=== PATIENT | female | born 1940 | race Caucasian/White ===

== ENCOUNTER 2016-09-10 20:25 | Emergency (ER) | payer OTHER ==
[~2016-09-10] VITALS: Ht 152.4 cm; Wt 93.0 kg
[~2016-09-10 20:25] MED LIST: CATAPRES-T0.1 MG/24 PO; GLYBURIDE5 M1 PO; KLOR-CON 1010 ME1 PO; LASIX40 MG PO; LOTENSIN20 MG PO; METFORMIN HYD1000 M1 PO; METFORMIN HYDRO1 POW; NIFEDIPINE ER30 M1 PO
[2016-09-10 20:30] VITALS: BP 152/90
--- NOTE | 2016-09-10 21:45 | NUR ---
Note undone in EDM - 09/11/16 at 0144 by HUAN PATIENT PRESENTS TO ED WITH pain to left arm due to fall at dinner . PT STATES DENIES N/V/D; SKIN IS PINK/WARM/DRY; AAOX4 WITH EVEN AND STEADY GAIT; LUNGS CLEAR BL; HR EVEN AND REGULAR; PT DENIES ANY FEVER, CP, SOB, OR COUGH AT THIS TIME; PATIENT STATES PAIN OF 6/10 AT THIS TIME; VSS; PATIENT POSITIONED FOR COMFORT; HOB ELEVATED; BEDRAILS UP X2; BED DOWN. ER MD MADE AWARE OF PT STATUS.
--- NOTE | 2016-09-10 23:31 | NUR ---
TO ER BED 2
--- NOTE | 2016-09-11 00:10 | NUR ---
PATIENT PRESENTS TO ED WITH pain to left arm due to fall at dinner . PT STATES DENIES N/V/D; SKIN IS PINK/WARM/DRY; AAOX4 WITH EVEN AND STEADY GAIT; LUNGS CLEAR BL; HR EVEN AND REGULAR; PT DENIES ANY FEVER, CP, SOB, OR COUGH AT THIS TIME; PATIENT STATES PAIN OF 6/10 AT THIS TIME; VSS; PATIENT POSITIONED FOR COMFORT; HOB ELEVATED; BEDRAILS UP X2; BED DOWN. ER MD MADE AWARE OF PT STATUS.
[2016-09-11] MEDS ORDERED: KETOROLAC 60 MG/2 ML VIAL IM ONE (00:35)
--- NOTE | 2016-09-11 00:50 | NUR ---
Patient being evaluated by at bedside.
--- NOTE | 2016-09-11 01:15 | NUR ---
Patient discharged with v/s stable. Written and verbal after care instructions given and explained. Patient alert, oriented and verbalized understanding of instructions. Ambulatory with steady gait. All questions addressed prior to discharge. ID band removed. Patient advised to follow up with PMD. Rx of TRAMADOL 50 MG given. Patient educated on indication of medication including possible reaction and side effects. Opportunity to ask questions provided and answered.
[2016-09-11 01:16] VITALS: BP 140/80
== END 2016-09-11 01:15 | disposition home or self-care (01) ==
LOC: MED 20:25
PROC: 3E033GC Introduction of Other Therapeutic Substance into Peripheral Vein, Percutaneous Approach (ICD-10-PCS; principal; 2016-09-10)
DX: S50.02XA Contusion of left elbow, initial encounter (principal); E11.9 Type 2 diabetes mellitus without complications; I10 Essential (primary) hypertension; W18.39XA Other fall on same level, initial encounter; Y92.89 Other specified places as the place of occurrence of the external cause
CPT/HCPCS: 73030; 73080; 96372; 99284; J1885

== ENCOUNTER 2017-02-10 11:30 | Inpatient (IN) | payer OTHER ==
[~2017-02-10] VITALS: Ht 152.4 cm; Wt 105.3 kg
[2017-02-10] VITALS (17 sets, daily range): BP systolic 174–249; BP diastolic 68–126
[~2017-02-10 11:30] MED LIST changes: -CATAPRES-T0.1 MG/24 PO; +CLON0.1T46 PO; +FURO-570 PO; +GLYB5TAB14 PO; -GLYBURIDE5 M1 PO; -KLOR-CON 1010 ME1 PO; -LASIX40 MG PO; -LOTENSIN20 MG PO; +METF-431 PO; -METFORMIN HYD1000 M1 PO; -METFORMIN HYDRO1 POW; -NIFEDIPINE ER30 M1 PO; +POTA10TA10 PO; +[UNRECOGNIZED DRUG - CODE] PO
[2017-02-10] MEDS ORDERED: FURO-572 PO (11:48)
[2017-02-10] MEDS ORDERED: BENA5TAB4 PO (11:48)
[2017-02-10] MEDS ORDERED: NACL 0.9% 1,000 ML IV ONE (12:30)
[2017-02-10] MEDS ORDERED: cloNIDine 0.1 MG TAB PO ONE ×2 (12:30→23:05)
[2017-02-10 13:04] LABS: BASOPHILS # (AUTO) 0.1 K/uL (0.00-0.22); BASOPHILS % (AUTO) 1.2 % (0.0-2.0); EOSINOPHILS # (AUTO) 0.1 K/uL (0-0.4); LYMPHOCYTES # (AUTO) 2.2 K/uL (2.5-16.5); LYMPHOCYTES % (AUTO) 36.1 % (20.5-51.1); MEAN CORPUSCULAR HEMOGLOBIN 30 pg (27-31); MEAN CORPUSCULAR HGB CONC 33 g/dL (33-37); MEAN CORPUSCULAR VOLUME 90 fL (80-94); MONOCYTES # (AUTO) 0.3 K/uL (0.8-1.0); MONOCYTES % (AUTO) 4.9 % (1.7-9.3); NEUTROPHILS # (AUTO) 3.5 K/uL (1.8-7.7); NEUTROPHILS % (AUTO) 55.8 % (42.2-75.2); PLATELET COUNT (AUTO) 161 K/uL (140-450); RED BLOOD CELL COUNT(AUTO) 4.34 MIL/uL (4.20-5.40); RED CELL DISTRIBUTION WIDTH 14.3 % (11.6-13.7); WHITE BLOOD COUNT (AUTO) 6.2 K/uL (4.8-10.8)
[2017-02-10 13:09] LABS: ANION GAP 11.8 (8-16); CALCIUM 9.4 mg/dL (8.5-10.1); CARBON DIOXIDE 27.3 mmol/L (21-32); CHLORIDE 104 mmol/L (98-107); CREATININE 1.4 mg/dL (0.6-1.3); GLUCOSE 178 mg/dL (74-106); POTASSIUM 4.1 mmol/L (3.5-5.1); SODIUM SERUM 139 mmol/L (136-145); UREA NITROGEN, BLOOD 27 mg/dL (7-18)
[2017-02-10] MEDS ORDERED: hydrALAZINE 20 MG/ML VIAL IVP ONE (13:10)
[2017-02-10 13:12] LABS: PARTIAL THROMBOPLASTIN TIME 27.7 secs (22-35.6); PROTHROMBIN TIME 10.5 secs (10.8-13.4)
[2017-02-10 13:14] LABS: ALANINE AMINOTRANSFERASE 24 U/L (14-59); ALBUMIN 3.2 g/dL (3.4-5.0); ALKALINE PHOSPHATASE 115 U/L (46-116); ASPARTATE AMINOTRANSFERASE 18 U/L (15-37); TOTAL BILIRUBIN 0.4 mg/dL (0.0-1.0)
[2017-02-10 13:39] LABS: CREATINE KINASE MB 2.9 ng/mL (0-3.6)
[2017-02-10] MEDS ORDERED: NITROGLYCERIN 50 MG/D5W PREMIX 250 ML IV ONE (13:45)
[2017-02-10] MEDS ORDERED: NITROPRUSSIDE 50 MG in DEXTROSE 5% 250 ML IV PRN (14:55)
[2017-02-10] MEDS: FUROSEMIDE 40 MG TAB PO SCH ×2 (22:00→22:49)
[2017-02-10] MEDS ORDERED: ONDANSETRON 4 MG/2 ML VIAL IVP PRN (22:00)
[2017-02-10] MEDS: BENAZEPRIL 20 MG TAB PO SCH ×2 (22:00→22:48)
[2017-02-10] MEDS ORDERED: cloNIDine 0.1 MG TAB PO SCH ×2 (23:00→23:05)
[2017-02-10] MEDS: cloNIDine 0.1 MG TAB PO SCH (23:00)
[2017-02-10] MEDS ORDERED: ACETAMINOPHEN EXTRA STRENGTH 500 MG TAB PO PRN (23:15)
[2017-02-11] VITALS (18 sets, daily range): BP systolic 122–210; BP diastolic 60–113
[2017-02-11] MEDS ORDERED: LABETALOL 100 MG/20 ML VIAL IV PRN
[2017-02-11] MEDS ORDERED: hydrALAZINE 20 MG/ML VIAL IVP PRN
[2017-02-11] MEDS ORDERED: LABETALOL 100 MG/20 ML VIAL ONE (00:24)
[2017-02-11 04:48] LABS: BASOPHILS # (AUTO) 0.1 K/uL (0.00-0.22); EOSINOPHILS # (AUTO) 0.2 K/uL (0-0.4); EOSINOPHILS % (AUTO) 1.9 % (0.0-4.0); HEMATOCRIT 35.3 % (36-48); HEMOGLOBIN 11.4 g/dL (12.0-16.0); LYMPHOCYTES # (AUTO) 1.8 K/uL (2.5-16.5); LYMPHOCYTES % (AUTO) 18.1 % (20.5-51.1); MEAN CORPUSCULAR HEMOGLOBIN 29 pg (27-31); MEAN CORPUSCULAR HGB CONC 32 g/dL (33-37); MEAN CORPUSCULAR VOLUME 90 fL (80-94); MONOCYTES # (AUTO) 0.4 K/uL (0.8-1.0); NEUTROPHILS # (AUTO) 7.2 K/uL (1.8-7.7); PLATELET COUNT (AUTO) 157 K/uL (140-450); RED BLOOD CELL COUNT(AUTO) 3.94 MIL/uL (4.20-5.40); RED CELL DISTRIBUTION WIDTH 13.9 % (11.6-13.7); WHITE BLOOD COUNT (AUTO) 9.7 K/uL (4.8-10.8)
[2017-02-11 06:14] LABS: ANION GAP 9.9 (8-16); CALCIUM 8.6 mg/dL (8.5-10.1); CARBON DIOXIDE 27.2 mmol/L (21-32); CHLORIDE 104 mmol/L (98-107); CREATININE 1.4 mg/dL (0.6-1.3); GLUCOSE 196 mg/dL (74-106); POTASSIUM 4.1 mmol/L (3.5-5.1); SODIUM SERUM 137 mmol/L (136-145); UREA NITROGEN, BLOOD 26 mg/dL (7-18)
[2017-02-11] MEDS ORDERED: fentaNYL 0.05 MG/ML VIAL IVP PRN (07:30)
[2017-02-11] MEDS: cloNIDine 0.1 MG TAB PO SCH ×3 (08:12→17:22)
[2017-02-11] MEDS ORDERED: BENAZEPRIL 20 MG TAB PO SCH (09:00)
[2017-02-11] MEDS ORDERED: FUROSEMIDE 40 MG TAB PO SCH (09:00)
[2017-02-11] MEDS: BLOOD GLUCOSE MONITORING 1 DEV DEV FS SCH ×2 (12:03→17:21)
[2017-02-11] MEDS: INSULIN LISPRO SLIDING SCALE 100 UNITS/ML VIAL SUBQ PRN ×2 (12:04→17:21)
[2017-02-11] MEDS ORDERED: PROBIOTIC SCREEN 1 EA MISC MC PRN (12:10)
[2017-02-11] MEDS ORDERED: POTA20TA16 PO (12:50)
[2017-02-11] MEDS ORDERED: FURO40TA9 PO (12:50)
[2017-02-11] MEDS ORDERED: CLON0.3T9 PO (12:50)
[2017-02-11] MEDS ORDERED: BENA20TA4 PO (12:50)
[2017-02-12] MEDS ORDERED: metFORMIN 500 MG TAB PO SCH (08:00)
== END 2017-02-11 18:10 | disposition home or self-care (01) | DRG 305 ==
LOC: MED 11:30 → MIC 14:59
PROVIDERS: ADMIT Internal Medicine Pulmonary Disease; ATTEND Internal Medicine Pulmonary Disease
DX: I10 Essential (primary) hypertension (principal); E11.9 Type 2 diabetes mellitus without complications; Z88.6 Allergy status to analgesic agent; R60.9 Edema, unspecified; Z79.899 Other long term (current) drug therapy; Z90.49 Acquired absence of other specified parts of digestive tract; Z90.710 Acquired absence of both cervix and uterus
CPT/HCPCS: 36415; 71010; 80048; 80053; 82550; 82553; 82948; 84484; 85025; 85610; 85730; 87081; 93005; 96365; 96366; 96375; 99285; J0360; J1815; J2405; J3490; J7030; Q0092

== ENCOUNTER 2017-06-24 13:10 | Emergency (ER) | payer OTHER ==
[~2017-06-24] VITALS: Ht 148.6 cm; Wt 94.9 kg
[~2017-06-24 13:10] MED LIST changes: +BENA20TA4 PO; -CLON0.1T46 PO; +CLON0.3T9 PO; -FURO-570 PO; +FURO40TA9 PO; -POTA10TA10 PO; +POTA20TE15 PO; -[UNRECOGNIZED DRUG - CODE] PO
[2017-06-24 13:17] VITALS: BP 144/64
--- NOTE | 2017-06-24 13:30 | NUR ---
PATIENT TO OF 2
--- NOTE | 2017-06-24 13:45 | NUR ---
76/F c/o cough and body aches x3 days. Denies any fever or chills. Denies N/V/D. AOX4, ambulates with steady gait. VSS.
[2017-06-24] MEDS ORDERED: ALBUTEROL SULFATE/IPRATROPIU 3 ML SOL IH ONE (14:35)
--- NOTE | 2017-06-24 14:46 | NUR ---
Pt back from x-ray and placed in overflow chair.
--- NOTE | 2017-06-24 15:35 | NUR ---
Patient discharged with v/s stable. Written and verbal after care instructions given and explained. Patient alert, oriented and verbalized understanding of instructions. Ambulatory with steady gait. All questions addressed prior to discharge. ID band removed. Patient advised to follow up with PMD. Rx of Cheratussin AC 100mg-10mg/5ml and Albuterol 90mcg/actuation given. Patient educated on indication of medication including possible reaction and side effects. Opportunity to ask questions provided and answered.
[2017-06-24 15:38] VITALS: BP 145/90
== END 2017-06-24 15:35 | disposition home or self-care (01) ==
LOC: MED 13:10
DX: J20.8 Acute bronchitis due to other specified organisms (principal); E11.9 Type 2 diabetes mellitus without complications; I10 Essential (primary) hypertension; Z88.5 Allergy status to narcotic agent
CPT/HCPCS: 71010; 94640; 99283; J7620

== ENCOUNTER 2017-07-24 12:47 | Emergency (ER) | payer OTHER, MEDICAID ==
[~2017-07-24] VITALS: Ht 152.4 cm; Wt 93.0 kg
[2017-07-24 13:02] VITALS: BP 177/82
--- NOTE | 2017-07-24 13:12 | NUR ---
Patient ambulated to bed 1. RN evaluating patient at bedside.
--- NOTE | 2017-07-24 13:20 | NUR ---
76f bib self with c/o intermittent "sharp" non radiaitng 5/10 ruq abd pain x last night. Pt denies any n/v/d or urinary complaints. Pt is aox4, with steady gait. RR are even and unlabored. Pt postioned to comfort, bed down. NAD. VSS. er md aware of pt status. Will continue to monitor.
--- NOTE | 2017-07-24 13:48 | NUR ---
Patient transferred to for further care.
[2017-07-24 13:53] LABS: BASOPHILS # (AUTO) 0.1 K/uL (0.00-0.22); BASOPHILS % (AUTO) 1.5 % (0.0-2.0); EOSINOPHILS # (AUTO) 0.1 K/uL (0-0.4); EOSINOPHILS % (AUTO) 0.8 % (0.0-4.0); HEMATOCRIT 38.8 % (36-48); HEMOGLOBIN 12.8 g/dL (12.0-16.0); LYMPHOCYTES % (AUTO) 28.4 % (20.5-51.1); MEAN CORPUSCULAR HEMOGLOBIN 29 pg (27-31); MEAN CORPUSCULAR HGB CONC 33 g/dL (33-37); MEAN CORPUSCULAR VOLUME 89 fL (80-94); MONOCYTES # (AUTO) 0.4 K/uL (0.8-1.0); MONOCYTES % (AUTO) 5.1 % (1.7-9.3); NEUTROPHILS # (AUTO) 4.5 K/uL (1.8-7.7); NEUTROPHILS % (AUTO) 64.2 % (42.2-75.2); PLATELET COUNT (AUTO) 212 K/uL (140-450); RED BLOOD CELL COUNT(AUTO) 4.38 MIL/uL (4.20-5.40); RED CELL DISTRIBUTION WIDTH 13.7 % (11.6-13.7); WHITE BLOOD COUNT (AUTO) 7.1 K/uL (4.8-10.8)
[2017-07-24 14:03] LABS: ANION GAP 11.2 (8-16); CARBON DIOXIDE 28.9 mmol/L (21-32); CHLORIDE 105 mmol/L (98-107); CREATININE 1.7 mg/dL (0.6-1.3); GLUCOSE 99 mg/dL (74-106); POTASSIUM 5.1 mmol/L (3.5-5.1); SODIUM SERUM 140 mmol/L (136-145); UREA NITROGEN, BLOOD 31 mg/dL (7-18)
[2017-07-24 14:16] LABS: ALBUMIN 3.7 g/dL (3.4-5.0); LIPASE 220 U/L (73-393); TOTAL BILIRUBIN 0.4 mg/dL (0.0-1.0)
[2017-07-24 14:26] LABS: ASPARTATE AMINOTRANSFERASE 24 U/L (15-37)
--- NOTE | 2017-07-24 15:38 | NUR ---
us by bedside
[2017-07-24 16:09] LABS: APPEARANCE,URINE CLEAR (CLEAR); BILIRUBIN,URINE NEGATIVE (NEGATIVE); BLOOD, URINE TRACE-I (NEGATIVE); COLOR,URINE YELLOW (YELLOW); LEUKOCYTE ESTERASE ,URINE NEGATIVE (NEGATIVE); NITRITE, URINE NEGATIVE (NEGATIVE); PH,URINE 6.5 (5.0-9.0); UGLUCOSE NEGATIVE (NEGATIVE)
[2017-07-24 16:15] VITALS: BP 177/82
--- NOTE | 2017-07-24 16:15 | NUR ---
Patient discharged with v/s stable. Written and verbal after care instructions given and explained to parent/guardian. Parent/Guardian verbalized understanding. Ambulatorysteady gait. All questions addressed prior to discharge. Advised to follow up with PMD.
[2017-07-24 16:20] LABS: RBC,URINE 3-10 (FEW) /HPF (0-5); WBC,URINE 6-15 (FEW) /HPF (0-5)
== END 2017-07-24 16:15 | disposition home or self-care (01) ==
LOC: MED 12:47
DX: N17.9 Acute kidney failure, unspecified (principal); R10.11 Right upper quadrant pain; E11.9 Type 2 diabetes mellitus without complications; I10 Essential (primary) hypertension; Z90.89 Acquired absence of other organs; Z88.5 Allergy status to narcotic agent; Z79.899 Other long term (current) drug therapy
CPT/HCPCS: 36415; 74176; 76705; 80053; 81001; 83690; 85025; 87086; 99285; Q0092

== ENCOUNTER 2018-07-13 12:54 | Emergency (ER) | payer OTHER, MEDICAID ==
[~2018-07-13] VITALS: Ht 162.6 cm; Wt 99.6 kg
[~2018-07-13 12:54] MED LIST changes: +BENA20TA11 PO; -BENA20TA4 PO
[2018-07-13 12:57] VITALS: BP 167/86
--- NOTE | 2018-07-13 13:00 | NUR ---
77 YO F BIB SELF W/ C/O DIZZINESS X TODAY. PT RE[facility]TS [facility] AND SHE FELT LIKE SHE WAS GOING TO FALL BECAUSE OF THE DIZZINESS. PT STATES SHE THOUGHT IT WAS HYPOGLYCEMIA, DRANK ORANGE JUICE W/O RELIEF. PT REPORTS MINOR HEADACHE, DENIES INJURY/TRAUMA TO HEAD/NECK. AAOX4, GCS 15. PT BED DOWN, BEDRAIL UP X 1, ER MD AWARE AND NOTIFIED OF PT STATUS. HX DM, HTN RX ON FILE
[2018-07-13] MEDS ORDERED: NACL 0.9% 1,000 ML IV ONE ×2 (13:35→16:35)
[2018-07-13] MEDS ORDERED: MECLIZINE 25 MG TAB PO ONE (13:35)
--- NOTE | 2018-07-13 13:37 | NUR ---
Patient being evaluated by physician at bedside.
[2018-07-13 14:04] LABS: BASOPHILS % (AUTO) 0.4 % (0.0-2.0); EOSINOPHILS # (AUTO) 0.1 K/uL (0-0.4); EOSINOPHILS % (AUTO) 1.3 % (0.0-4.0); HEMATOCRIT 36.4 % (36-48); HEMOGLOBIN 11.9 g/dL (12.0-16.0); LYMPHOCYTES # (AUTO) 1.6 K/uL (2.5-16.5); LYMPHOCYTES % (AUTO) 24.5 % (20.5-51.1); MEAN CORPUSCULAR HEMOGLOBIN 30 pg (27-31); MEAN CORPUSCULAR HGB CONC 33 g/dL (33-37); MEAN CORPUSCULAR VOLUME 89.8 fL (80-94); MONOCYTES # (AUTO) 0.3 K/uL (0.8-1.0); MONOCYTES % (AUTO) 4.3 % (1.7-9.3); NEUTROPHILS # (AUTO) 4.6 K/uL (1.8-7.7); NEUTROPHILS % (AUTO) 69.5 % (42.2-75.2); PLATELET COUNT (AUTO) 153 K/uL (140-450); RED BLOOD CELL COUNT(AUTO) 4.05 MIL/uL (4.20-5.40); RED CELL DISTRIBUTION WIDTH 14.6 % (11.6-13.7); WHITE BLOOD COUNT (AUTO) 6.7 K/uL (4.8-10.8)
[2018-07-13 14:29] LABS: POTASSIUM 4.8 mmol/L (3.5-5.1); SODIUM SERUM 139 mmol/L (136-145)
[2018-07-13 14:30] LABS: ANION GAP 14.7 (8-16); CARBON DIOXIDE 26.1 mmol/L (21-32); CHLORIDE 103 mmol/L (98-107); CREATININE 1.7 mg/dL (0.6-1.3); GLUCOSE 164 mg/dL (74-106); UREA NITROGEN, BLOOD 31 mg/dL (7-18)
--- NOTE | 2018-07-13 15:27 | NUR ---
Note pete in ED - 07/13/18 at 1633 by MEDMARCUS Patient discharged with v/s stable. Written and verbal after care instructions given and explained. Patient verbalized understanding. Ambulatory with steady gait. All questions addressed prior to discharge. Advised to follow up with PMD.
[2018-07-13] MEDS ORDERED: LORazepam 2 MG/ML VIAL IVP ONE (16:35)
[2018-07-13 19:03] VITALS: BP 153/75
--- NOTE | 2018-07-13 19:03 | NUR ---
Patient discharged with v/s stable. Written and verbal after care instructions given and explained. Patient alert, oriented and verbalized understanding of instructions. Ambulatory with steady gait. All questions addressed prior to discharge. ID band removed. Patient advised to follow up with PMD. Rx of meclizine and ativan given. Patient educated on indication of medication including possible reaction and side effects. Opportunity to ask questions provided and answered.
== END 2018-07-13 19:03 | disposition home or self-care (01) ==
LOC: MED 12:54
DX: R42 Dizziness and giddiness (principal); R51 Headache; E11.9 Type 2 diabetes mellitus without complications; I10 Essential (primary) hypertension; Z79.84 Long term (current) use of oral hypoglycemic drugs; Z79.899 Other long term (current) drug therapy
CPT/HCPCS: 36415; 70450; 80048; 85025; 93005; 96361; 96374; 99284; J2060; J7030; J8597

== ENCOUNTER 2019-12-01 04:40 | Inpatient (IN) | payer OTHER, MEDICAID, SELFPAY ==
[~2019-12-01] VITALS: Ht 157.5 cm; Wt 132.9 kg
[~2019-12-01 04:40] MED LIST changes: +ALLO100T21 PO; +AMLO10TA PO; +ATI.5 PO; +BACL10TA4 PO; -BENA20TA11 PO; +CLON0.2T43 PO; -CLON0.3T9 PO; -FURO40TA9 PO; +GLIP10TA12 PO; -GLYB5TAB14 PO; +HYDR-4420 PO; -METF-431 PO; -POTA20TE15 PO; +SIMV20TA1 PO; +SITA50TA3 PO
--- NOTE | 2019-12-01 04:45 | NUR ---
PT TAKEN TO BED 10 VIA RNEY.
[2019-12-01 04:52] VITALS: BP 192/78
--- NOTE | 2019-12-01 04:52 | NUR ---
78 Y/O FEMALE BIBA FROM HOME C/O SOB X 2HRS. DENIES PAIN BUT HAS CHEST DISCOMFORT AND DESCRIBES IT PRESSURE AND IS NONRADIATING. +SOB, LABORED BREATHING, EQUAL CHEST RISE AND FALL, TACHYPENIC, +PRODUCTIVE MOIST COUGH. NO USE OF ACCESSORY MUSCLE. VSS. SPO2 99% ON 2LNC. PT ALSO HAS 5-6 WORDS SENTENCES BEFORE GETTING SOB. LUNG SOUNDS ARE CLEAR BILAT UPPER LOBES, DIMINISHED ON RIGHT LOWER LOBE, AND CRACKLES ON LEFT LOWER LOBE. HEART SOUNDS S1S2 PRESENT, CAP REFILL < 3, +3 PITTING EDEMA ON BILAT ANKLE AND PEDAL ON LOWER EXTREMETIES. A&OX4. USES WALKER AT HOME TO AMBULATE. ALLERGIES: CODEINE PMH: HTN, HIGH CHOLOSTEROL, DM.
--- NOTE | 2019-12-01 04:55 | NUR ---
IV PLACED IN L AC 20. IV SITE PATENT. LABS DRAWN AND COLLECTED.
--- NOTE | 2019-12-01 04:57 | NUR ---
RT AT BEDSIDE.
--- NOTE | 2019-12-01 05:07 | NUR ---
EKG DONE AT BEDSIDE.
[2019-12-01] MEDS ORDERED: ACETAMINOPHEN EXTRA STRENGTH 500 MG TAB PO ONE (05:20)
[2019-12-01 05:24] LABS: BASOPHILS # (AUTO) 0.1 K/uL (0.00-0.22); BASOPHILS % (AUTO) 0.5 % (0.0-2.0); EOSINOPHILS # (AUTO) 0.1 K/uL (0-0.4); EOSINOPHILS % (AUTO) 0.8 % (0.0-4.0); HEMATOCRIT 32.4 % (36-48); HEMOGLOBIN 10.4 g/dL (12.0-16.0); LYMPHOCYTES # (AUTO) 1.5 K/uL (2.5-16.5); MEAN CORPUSCULAR HEMOGLOBIN 29 pg (27-31); MEAN CORPUSCULAR HGB CONC 32 g/dL (33-37); MEAN CORPUSCULAR VOLUME 90.7 fL (80-94); MONOCYTES # (AUTO) 0.3 K/uL (0.8-1.0); MONOCYTES % (AUTO) 2.9 % (1.7-9.3); NEUTROPHILS # (AUTO) 9.3 K/uL (1.8-7.7); NEUTROPHILS % (AUTO) 82.8 % (42.2-75.2); PLATELET COUNT (AUTO) 162 K/uL (140-450); RED BLOOD CELL COUNT(AUTO) 3.57 MIL/uL (4.20-5.40); RED CELL DISTRIBUTION WIDTH 18.2 % (11.6-13.7); WHITE BLOOD COUNT (AUTO) 11.3 K/uL (4.8-10.8)
[2019-12-01 05:34] LABS: PROTHROMBIN TIME 9.7 secs (10.8-13.4)
[2019-12-01 05:35] LABS: ALBUMIN 3.6 g/dL (3.4-5.0); ANION GAP 17.2 (8-16); ASPARTATE AMINOTRANSFERASE 18 U/L (15-37); CARBON DIOXIDE 20.3 mmol/L (21-32); CHLORIDE 105 mmol/L (98-107); CREATININE 2.9 mg/dL (0.6-1.3); GLUCOSE 159 mg/dL (74-106); POTASSIUM 4.5 mmol/L (3.5-5.1); SODIUM SERUM 138 mmol/L (136-145); TOTAL BILIRUBIN 0.4 mg/dL (0.0-1.0); UREA NITROGEN, BLOOD 41 mg/dL (7-18)
--- NOTE | 2019-12-01 05:50 | NUR ---
XR AT BEDSIDE.
[2019-12-01 05:54] LABS: APPEARANCE,URINE HAZY (CLEAR); BILIRUBIN,URINE NEGATIVE (NEGATIVE); BLOOD, URINE NEGATIVE (NEGATIVE); COLOR,URINE YELLOW (YELLOW); LEUKOCYTE ESTERASE ,URINE NEGATIVE (NEGATIVE); NITRITE, URINE NEGATIVE (NEGATIVE); UGLUCOSE NEGATIVE (NEGATIVE)
[2019-12-01 06:10] LABS: RBC,URINE 0-5 /HPF (0-5); URINE AMORPHOUS URATE 1+ /HPF (None Seen); WBC,URINE 0-5 /HPF (0-5)
--- NOTE | 2019-12-01 06:33 | NUR ---
PT SLEEPING COMFORTABLY. EQUAL CHEST RISE AND FALL. NO DISTRESS NOTED.
--- NOTE | 2019-12-01 07:05 | NUR ---
PT SWABED FOR FLU AND COVID. SWABS TAKEN TO LAB.
--- NOTE | 2019-12-01 07:19 | NUR ---
Pt report given to IMELDA CARRION. Transfer of care at this time.
--- NOTE | 2019-12-01 07:23 | NUR ---
REPORT OBTAINED FROM JOSE SEGURA FOR CONTINUITY OF CARE
--- NOTE | 2019-12-01 07:46 | NUR ---
PT RESTING IN BED, SIDE RAIL X1
--- NOTE | 2019-12-01 08:40 | NUR ---
RECEIVED REPORT FROM CATTERY OPERATOR FOR CONTIGUITY OF CARE. PT INS TABLE CONDITION AT THIS TIME. ORIENTED TO ROOM AND CALL LIGHT WILL ROUND FREQUENTLY ON PT.
--- NOTE | 2019-12-01 08:41 | NUR ---
Patient will be admitted to [facility]. Admited to TELEMETRY. Will go to room 121A. Belongings list completed. Report to DARLEEN SEGURA.
[2019-12-01] MEDS: FUROSEMIDE 40 MG/4 ML VIAL IVP SCH ×3 (09:51→17:26)
[2019-12-01] MEDS: hydrALAZINE 25 MG TAB PO SCH ×2 (09:51→20:51)
[2019-12-01] MEDS: DOCUSATE SODIUM 100 MG GELCAP PO SCH (09:52)
[2019-12-01] MEDS: cloNIDine 0.1 MG TAB PO SCH ×2 (09:52→20:59)
[2019-12-01] MEDS: amLODIPine 5 MG TAB PO SCH (09:52)
--- NOTE | 2019-12-01 10:47 | NUR ---
MEDS GIVEN. PT RESTING IN BED. ALL NEEDS MET
--- NOTE | 2019-12-01 12:57 | NUR ---
PT ASLEEP. ALL NEEDS MET
--- NOTE | 2019-12-01 15:41 | NUR ---
PT SITTING AT BEDSIDE COMMODE. ALL NEEDS MET.
--- NOTE | 2019-12-01 15:56 | NUR ---
PATIENT HAS BEEN SCREENED AND CATEGORIZED MODERATE NUTRITION RISK. PATIENT WILL BE SEEN WITHIN 3-5 DAYS OF ADMISSION. 12/03/19 12/05/[address]
[2019-12-01 16:00] VITALS: BP 152/67
[2019-12-01] MEDS ORDERED: DEXTROSE 50% 50 ML SYR IVP PRN (16:05)
--- NOTE | 2019-12-01 17:10 | NUR ---
PT WATCHING TV. ALL NEEDS ME.T
[2019-12-01] MEDS: BLOOD GLUCOSE MONITORING 1 DEV DEV FS SCH ×2 (17:26→20:51)
[2019-12-01] MEDS: INSULIN LISPRO SLIDING SCALE 100 UNITS/ML VIAL SUBQ PRN ×2 (17:26→21:52)
--- NOTE | 2019-12-01 19:24 | NUR ---
ENDORSED PT TO PROFESSIONAL SKATER FOR CONTINUITY OF CARE. PT IN STABLE CONDITION AT THIS TIME.
--- NOTE | 2019-12-01 19:25 | NUR ---
RECEIVED ENDORSEMENT FROM AM SHIFT RN. PATIENT IS AOX4. CAMEROONIAN AND ANGOLAN SPEAKING. RESPIRATION EVEN AND UNLABORED. NO SOB. ON 02 AT 2LPM VIA NC. NO PAIN NOTED. IV SITE AT LAC 20 GAUGE. INTACT. ON SALINE LOCK. FALL PREVENTION PROTOCOL IN PLACE. DROPLET PRECAUTION IN PLACE AT ALL TIMES. PLAN OF CARE WAS DISCUSSED. CALL LIGHT WITHIN REACH. WILL CONTINUE TO MONITOR.
[2019-12-01 20:00] VITALS: BP 153/70
[2019-12-01] MEDS: SIMVASTATIN 20 MG TAB PO SCH (20:52)
--- NOTE | 2019-12-01 21:00 | NUR ---
PATIENT IS RESTING. DUE MEDS GIVEN ORDERED. TOLERATED WELL. MED EDUCATION PROVIDED. WILL CONTINUE TO MONITOR.
--- NOTE | 2019-12-01 21:23 | NUR ---
RECEIVED A CALL FROM TEODORO MARIE, REPORTED PATIENT IS COVID [address] NE[address]IVE. INFORMED SPLICER APPRENTICE DR. SHAW. NO NEW ORDER.
--- NOTE | 2019-12-01 22:29 | NUR ---
RE-CHECKED PATIENT'S BP 128/61. HR 81.
[2019-12-02] VITALS: BP 151/55
--- NOTE | 2019-12-02 00:30 | NUR ---
V/S TAKEN AND RECORDED. CALL LIGHT WITHIN REACH. WILL CONTINUE TO MONITOR.
--- NOTE | 2019-12-02 03:12 | NUR ---
PATIENT IS SLEEPING. RESPIRATION EVEN AND UNLABORED. NO SOB NOTED. WILL CONTINUE TO MONITOR.
[2019-12-02 04:00] VITALS: BP 156/65
--- NOTE | 2019-12-02 05:12 | NUR ---
PATIENT IS AWAKE. USED BEDSIDE COMMODE. NOT IN ANY ACUTE DISTRESS. DENIES PAIN. WILL CONTINUE TO MONITOR.
[2019-12-02] MEDS: BLOOD GLUCOSE MONITORING 1 DEV DEV FS SCH ×4 (05:49→21:57)
--- NOTE | 2019-12-02 07:18 | NUR ---
PATIENT HAS NO SOB. RESPIRATION EVEN AND UNLABORED. NOT IN ANY DISTRESS. DENIES PAIN. ENDORSED TO AM SHIFT RN FOR CONTINUITY OF CARE.
--- NOTE | 2019-12-02 07:19 | NUR ---
RECEIVED REPORT FROM PARTS ADVISOR NURSE TAM FOR CONTINUITY OF CARE. PATIENT IN STABLE CONDITION. RESPIRATIONS EVEN AND UNLABORED, 02 2L VIA NC. IV INTACT AND PATENT. SAFETY MEASURES IN PLACE. BED IN LOW POSITION. CALL LIGHT WITHIN REACH. WILL CONTINUE TO MONITOR.
[2019-12-02 08:00] VITALS: BP 165/74
[2019-12-02] MEDS: FUROSEMIDE 40 MG/4 ML VIAL IVP SCH ×3 (08:35→17:57)
[2019-12-02] MEDS: DOCUSATE SODIUM 100 MG GELCAP PO SCH (08:35)
[2019-12-02] MEDS: cloNIDine 0.1 MG TAB PO SCH ×2 (08:36→21:19)
[2019-12-02] MEDS: amLODIPine 5 MG TAB PO SCH (08:36)
--- NOTE | 2019-12-02 09:35 | NUR ---
CRITICAL LAB TROPONIN <0.075 NO CHANGE IN LAB INFORMED FITZ CORONA.
[2019-12-02 09:45] LABS: BASOPHILS % (AUTO) 0.5 % (0.0-2.0); EOSINOPHILS # (AUTO) 0.1 K/uL (0-0.4); EOSINOPHILS % (AUTO) 1.3 % (0.0-4.0); LYMPHOCYTES % (AUTO) 27.1 % (20.5-51.1); MEAN CORPUSCULAR HEMOGLOBIN 29 pg (27-31); MEAN CORPUSCULAR HGB CONC 32 g/dL (33-37); MEAN CORPUSCULAR VOLUME 91.2 fL (80-94); MONOCYTES # (AUTO) 0.5 K/uL (0.8-1.0); MONOCYTES % (AUTO) 6.2 % (1.7-9.3); NEUTROPHILS # (AUTO) 4.8 K/uL (1.8-7.7); NEUTROPHILS % (AUTO) 64.9 % (42.2-75.2); PLATELET COUNT (AUTO) 154 K/uL (140-450); RED CELL DISTRIBUTION WIDTH 17.8 % (11.6-13.7); WHITE BLOOD COUNT (AUTO) 7.4 K/uL (4.8-10.8)
[2019-12-02 10:45] LABS: ANION GAP 18.3 (8-16); CARBON DIOXIDE 21.2 mmol/L (21-32); CHLORIDE 102 mmol/L (98-107); CREATININE 2.9 mg/dL (0.6-1.3); GLUCOSE 146 mg/dL (74-106); POTASSIUM 4.5 mmol/L (3.5-5.1); SODIUM SERUM 137 mmol/L (136-145); UREA NITROGEN, BLOOD 43 mg/dL (7-18)
[2019-12-02] MEDS: POTASSIUM CHLORIDE 10 MEQ TABER PO SCH (11:06)
[2019-12-02] MEDS: hydrALAZINE 25 MG TAB PO SCH ×2 (11:06→21:57)
--- NOTE | 2019-12-02 11:10 | NUR ---
ASSISTED WITH BEDSIDE COMMODE AT THIS TIME. PATIENT TOLERATED WELL. WILL CONTINUE TO MONITOR.
[2019-12-02 12:00] VITALS: BP 150/65
--- NOTE | 2019-12-02 13:15 | NUR ---
PATIENT FINISHING UP WITH LUNCH AT THIS TIME. PATIENT SITTING ON SIDE OF BED AT THIS TIME. BED IN LOW POSITION. BED ALARM ON. CALL LIGHT WITHIN REACH. WILL CONTINUE TO MONITOR.
[2019-12-02] MEDS: LORazepam 0.5 MG TAB PO PRN (14:05)
--- NOTE | 2019-12-02 15:45 | NUR ---
PATIENT SLEEP AT THIS TIME. RESPIRATIONS EVEN AND UNLABORED, 02 2L VIA NC. BED IN LOW POSITION. BED ALARM ON. CALL LIGHT WITHIN REACH. WILL CONTINUE TO MONITOR.
[2019-12-02 16:00] VITALS: BP 152/72
--- NOTE | 2019-12-02 17:56 | NUR ---
PATIENT WATCHING TV AT THIS TIME. BED IN LOW POSITION. BED ALARM ON. CALL LIGHT WITHIN REACH. WILL CONTINUE TO MONITOR.
[2019-12-02] MEDS: SPIRONOLACTONE 25 MG TAB PO SCH (17:57)
--- NOTE | 2019-12-02 19:24 | NUR ---
GAVE REPORT TO SLIDER ASSEMBLER NURSE TAM FOR CONTINUITY OF CARE. PATIENT IN STABLE CONDITION.
--- NOTE | 2019-12-02 19:25 | NUR ---
RECEIVED REPORT AT BEDSIDE FROM AM SHIFT RN. PATIENT IS SITTING IN BED. AOX4. RESPIRATION EVEN AND UNLABORED. NO SOB. ON O2 AT 2LPM VIA NC. DENIES PAIN. WITH LAC 20G LINE, SALINE LOCK. ISOLATION PRECAUTION OBSERVED AT ALL TIMES. FALL RISK PROTOCOL IN PLACE. ASSESSMENT DONE. PLAN OF CARE WAS DISCUSSED. CALL LIGHT WITHIN REACH. WILL CONTINUE TO MONITOR.
[2019-12-02 20:00] VITALS: BP 156/79
[2019-12-02] MEDS: SIMVASTATIN 20 MG TAB PO SCH (21:18)
--- NOTE | 2019-12-02 21:18 | NUR ---
ADMINISTERED DUE MEDS ORDERED. TOLERATED WELL. MED EDUCATION PROVIDED. WILL CONTINUE TO MONITOR.
--- NOTE | 2019-12-02 22:20 | NUR ---
PATIENT C/O HEADACHE 09/11. REPOSITIONING DONE. PATIENT REQUESTED TYLENOL. MIROSLAVA ROMERO. AWAITING CALL BACK.
--- NOTE | 2019-12-02 22:58 | NUR ---
JUTE BAG CUTTING MACHINE OPERATOR DR. FITZ POTTS CALLED BACK. INFORMED ABOUT PATIENT HEADACHE 09/11. ORDERED TYLENOL 650MG PO Q6 PRN FOR MILD PAIN. NOTED AND CARRIED OUT.
[2019-12-02] MEDS: ACETAMINOPHEN 325 MG TAB PO PRN (23:11)
--- NOTE | 2019-12-02 23:11 | NUR ---
TYLENOL 650MG PO GIVEN FOR MILD PAIN ORDERED. TOLERATED WELL. NO SOB. WILL CONTINUE TO MONITOR.
[2019-12-03] VITALS: BP 141/62
--- NOTE | 2019-12-03 00:11 | NUR ---
PATIENT IS SLEEPING. NO PAIN NOTED. WILL CONTINUE TO MONITOR.
--- NOTE | 2019-12-03 03:22 | NUR ---
PATIENT IS SLEEPING. RESPIRATION EVEN AND UNLABORED. NO SOB. NO PAIN NOTED. CALL LIGHT WITHIN REACH. WILL CONTINUE TO MONITOR.
[2019-12-03 04:00] VITALS: BP 159/67
[2019-12-03] MEDS: BLOOD GLUCOSE MONITORING 1 DEV DEV FS SCH ×4 (06:49→21:25)
--- NOTE | 2019-12-03 07:17 | NUR ---
RECEIVED BEDSIDE REPORT FROM PM NURSE FOR CONTINUITY OF CARE. PATIENT IS AWAKE. RESPIRATIONS EVEN AND UNLABORED, ON 2L O2 VIA NC. SURGICAL MASK ON. VISIBLE CHEST RISE AND FALL NOTED. ON TELE MONITORING. ABDOMEN SOFT AND NONTENDER. SKIN WARM. DRY, AND INTACT. IV ON THE RIGHT AC G20, SALINE LOCK. PATIENT USES BEDSIDE COMMODE. ON DROPLET PRECAUTION FOR INFLUENZA A&B. FALL PRECAUTION IN PLACE. BED IN LOW POSITION. CALL LIGHT IS WITHIN REACH. WILL CONTINUE TO MONITOR.
--- NOTE | 2019-12-03 07:20 | NUR ---
PATIENT IS RESTING. ENDORSED TO AM SHIFT RN THAT PATIENT IS REQUESTING FOR CT SCAN OF THE HEAD. PATIENT REFUSED TO TAKE PAIN PILL. NO SOB. ENDORSED TO AM SHIFT RN FOR CONTINUITY OF CARE.
[2019-12-03 07:53] LABS: BASOPHILS # (AUTO) 0.1 K/uL (0.00-0.22); BASOPHILS % (AUTO) 0.7 % (0.0-2.0); EOSINOPHILS # (AUTO) 0.1 K/uL (0-0.4); EOSINOPHILS % (AUTO) 1.4 % (0.0-4.0); HEMATOCRIT 31.6 % (36-48); HEMOGLOBIN 10.1 g/dL (12.0-16.0); LYMPHOCYTES # (AUTO) 2.4 K/uL (2.5-16.5); LYMPHOCYTES % (AUTO) 33.6 % (20.5-51.1); MEAN CORPUSCULAR HEMOGLOBIN 29 pg (27-31); MEAN CORPUSCULAR HGB CONC 32 g/dL (33-37); MEAN CORPUSCULAR VOLUME 91.8 fL (80-94); MONOCYTES # (AUTO) 0.5 K/uL (0.8-1.0); MONOCYTES % (AUTO) 6.5 % (1.7-9.3); NEUTROPHILS # (AUTO) 4.1 K/uL (1.8-7.7); NEUTROPHILS % (AUTO) 57.8 % (42.2-75.2); PLATELET COUNT (AUTO) 173 K/uL (140-450); RED BLOOD CELL COUNT(AUTO) 3.44 MIL/uL (4.20-5.40); RED CELL DISTRIBUTION WIDTH 17.7 % (11.6-13.7); WHITE BLOOD COUNT (AUTO) 7.2 K/uL (4.8-10.8)
[2019-12-03 07:57] LABS: ALBUMIN 3.2 g/dL (3.4-5.0); ANION GAP 21.8 (8-16); ASPARTATE AMINOTRANSFERASE 14 U/L (15-37); CHLORIDE 98 mmol/L (98-107); GLUCOSE 143 mg/dL (74-106); POTASSIUM 4.8 mmol/L (3.5-5.1); SODIUM SERUM 137 mmol/L (136-145); TOTAL BILIRUBIN 0.4 mg/dL (0.0-1.0); UREA NITROGEN, BLOOD 50 mg/dL (7-18)
[2019-12-03 08:00] VITALS: BP 179/85
[2019-12-03] MEDS: FUROSEMIDE 40 MG/4 ML VIAL IVP SCH ×3 (08:39→16:32)
[2019-12-03] MEDS: SPIRONOLACTONE 25 MG TAB PO SCH ×2 (08:40→16:33)
[2019-12-03] MEDS: POTASSIUM CHLORIDE 10 MEQ TABER PO SCH (08:41)
[2019-12-03] MEDS: DOCUSATE SODIUM 100 MG GELCAP PO SCH (08:41)
[2019-12-03] MEDS: cloNIDine 0.1 MG TAB PO SCH ×2 (08:45→21:19)
--- NOTE | 2019-12-03 08:45 | NUR ---
ADMINISTERED MORNING MEDICATIONS PO. LASIX IVP. HEPARIN SUQB IN THE ABDOMEN. PLATELET IS 173. GIVEN MEDICATION EDUCATION. BED IN LOW POSITION. CALL LIGHT IS WITHIN REACH. WILL CONTINUE TO MONITOR. WILL REASSES BP
[2019-12-03] MEDS: amLODIPine 5 MG TAB PO SCH (08:46)
[2019-12-03] MEDS: hydrALAZINE 25 MG TAB PO SCH ×2 (08:47→21:18)
[2019-12-03] MEDS: LORazepam 0.5 MG TAB PO PRN (10:07)
--- NOTE | 2019-12-03 10:07 | NUR ---
C/O OF ANXIETY. GIVEN ATIVAN PO. EXPLAINED MEDICATION. PATIENT VERBALIZED UNDERSTANDING. BED IN LOW POSITION. CALL LIGHT IS WITHIN REACH. WILL CONTINUE TO MONITOR
--- NOTE | 2019-12-03 11:14 | NUR ---
GIVEN UPDATE TO THE GRAND-DAUGHTER.
[2019-12-03] MEDS: ACETAMINOPHEN 325 MG TAB PO PRN (11:47)
--- NOTE | 2019-12-03 11:47 | NUR ---
BLOOD SUGAR CHECKED: 161. WILL GIVE INSULIN COVERAGE. PATIENT TOLERATED WELL. C/O 09/11 LEFT SIDED HEADACHE. GIVEN TYLENOL PO. WILL REASSESS FOR PAIN
[2019-12-03 12:00] VITALS: BP 151/52
[2019-12-03] MEDS: INSULIN LISPRO SLIDING SCALE 100 UNITS/ML VIAL SUBQ PRN ×2 (12:16→21:29)
--- NOTE | 2019-12-03 12:16 | NUR ---
ADMINISTERED 2 UNITS OF HUMALOG SUBQ IN THE LEFT UPPER ARM FOR BS OF 161. PATIENT TOLERATED WELL. LUNCH TRAY ON BEDSIDE TABLE.
--- NOTE | 2019-12-03 12:46 | NUR ---
LEFT-SIDED HEADACHE REASSESSED. PATIENT STATED NOTHING HAS CHANGED SINCE TYLENOL ADMINISTRATION. WILL PAGE FOR ORDER.
--- NOTE | 2019-12-03 13:00 | NUR ---
LASIX IVP GIVEN. GIVEN MEDICATION EDUCATION. BP IS 151/86, HR 76. WILL CONTINUE TO MONITOR
--- NOTE | 2019-12-03 13:05 | NUR ---
RECEIVED A CALL FROM DR. POTTS. HE STATED HE DOES NOT WANT TO ORDER ANOTHER PAIN MEDICATION. PATIENT AWARE.
--- NOTE | 2019-12-03 14:01 | NUR ---
PATIENT IS CURRENTLY SLEEPING AT THIS TIME. NO SIGNS OF DISTRESS NOTED. ON 2L O2 VIA NC. BED IN LOW POSITION. CALL LIGHT IS WITHIN REACH. WILL MONITOR CONTINUOUSLY
[2019-12-03 16:00] VITALS: BP 146/59
--- NOTE | 2019-12-03 16:32 | NUR ---
BLOOD SUGAR CHECKED: 146. NO INSULIN COVERAGE NEEDED. GIVEN LASIX IVP AND ALDACTONE PO. EXPLAINED MEDICATIONS. PATIENT VERBALIZED UNDERSTANDING. VS ALSO CHECKED. ALL WITHIN THE NORMAL LIMITS. AFEBRILE. DENIES PAIN OR SOB. WILL CONTINUE TO MONITOR
--- NOTE | 2019-12-03 18:01 | NUR ---
PATIENT IS CURRENTLY EATING DINNER AT THIS TIME.
--- NOTE | 2019-12-03 18:58 | NUR ---
ASSISTED PATIENT TO THE BEDSIDE COMMODE FOR VOIDING.
--- NOTE | 2019-12-03 19:19 | NUR ---
ENDORSED PATIENT TO THE REAL ESTATE UNDERWRITER NURSE FOR CONTINUITY OF CARE. PATIENT IS IN STABLE CONDITION.
[2019-12-03 20:00] VITALS: BP 154/65
--- NOTE | 2019-12-03 20:14 | NUR ---
REPORT RECEIVED FROM AM NURSE AT BEDSIDE. PT IN STABLE CONDITION. AAOX4. INTRODUCED SELF TO PT. BOARD UPDATED. NO COMPLAINTS OF PAIN. NO SOB ON 2L O2 VIA NC. AFEBRILE. PT IS AMBULATORY. PT HAS BRP. IV SITE L AC 20G SL PATENT AND INTACT. SKIN WARM, DRY, AND INTACT WITH NO OPEN WOUNDS. BED LOCKED IN LOW POSITION. CALL DAVIS WITHIN REACH. SAFETY PRECAUTION IN PLACE. ALL NEEDS MET AT THIS TIME.
--- NOTE | 2019-12-03 21:19 | NUR ---
APRESOLINE, CATAPRES, AND ZOCOR GIVEN PO. HEPARIN GIVEN SUBQ. BS 200. 2 UNITS OF HUMALOG GIVEN. PT TOLERATED WELL.
[2019-12-03] MEDS: SIMVASTATIN 20 MG TAB PO SCH (21:20)
--- NOTE | 2019-12-03 21:45 | NUR ---
PT COMPLAINS OF HEADACHE. SAYS TYLENOL DOES NOT HELP. MD NOTIFIED. ORDERED TRAMADOL 50MG PO Q6H PRN FOR HEADACHE. TORB.
[2019-12-03] MEDS ORDERED: traMADol 50 MG TAB PO PRN (22:00)
--- NOTE | 2019-12-03 22:14 | NUR ---
TRAMADOL GIVEN FOR HEADACHE. PT TOLERATED WELL.
[2019-12-04] VITALS: BP 147/61
--- NOTE | 2019-12-04 00:05 | NUR ---
PT AWAKE AND ALERT IN BED WATCHING TV. NO S/S OF DISTRESS NOTED. WILL CONTINUE TO MONITOR.
--- NOTE | 2019-12-04 02:45 | NUR ---
PT AWAKE AND ALERT WATCHING TV. NO S/S OF DISTRESS NOTED. WILL CONTINUE TO MONITOR.
[2019-12-04 04:00] VITALS: BP 162/64
[2019-12-04] MEDS: BLOOD GLUCOSE MONITORING 1 DEV DEV FS SCH ×2 (05:16→11:30)
--- NOTE | 2019-12-04 05:16 | NUR ---
BS 140. NO INSULIN COVERAGE NEEDED.
[2019-12-04] MEDS: LORazepam 0.5 MG TAB PO PRN (05:30)
[2019-12-04 06:12] LABS: BASOPHILS # (AUTO) 0.1 K/uL (0.00-0.22); EOSINOPHILS # (AUTO) 0.1 K/uL (0-0.4); EOSINOPHILS % (AUTO) 1.6 % (0.0-4.0); HEMATOCRIT 29.8 % (36-48); HEMOGLOBIN 9.6 g/dL (12.0-16.0); LYMPHOCYTES # (AUTO) 1.9 K/uL (2.5-16.5); MEAN CORPUSCULAR HEMOGLOBIN 30 pg (27-31); MEAN CORPUSCULAR HGB CONC 32 g/dL (33-37); MEAN CORPUSCULAR VOLUME 91.9 fL (80-94); MONOCYTES # (AUTO) 0.4 K/uL (0.8-1.0); MONOCYTES % (AUTO) 5.9 % (1.7-9.3); NEUTROPHILS # (AUTO) 3.5 K/uL (1.8-7.7); NEUTROPHILS % (AUTO) 59.5 % (42.2-75.2); PLATELET COUNT (AUTO) 171 K/uL (140-450); RED BLOOD CELL COUNT(AUTO) 3.24 MIL/uL (4.20-5.40); RED CELL DISTRIBUTION WIDTH 17.8 % (11.6-13.7)
[2019-12-04 06:24] LABS: ALBUMIN 3.1 g/dL (3.4-5.0); ANION GAP 13.9 (8-16); ASPARTATE AMINOTRANSFERASE 13 U/L (15-37); CARBON DIOXIDE 26.5 mmol/L (21-32); CHLORIDE 98 mmol/L (98-107); CREATININE 3.3 mg/dL (0.6-1.3); GLUCOSE 150 mg/dL (74-106); POTASSIUM 5.4 mmol/L (3.5-5.1); SODIUM SERUM 133 mmol/L (136-145); TOTAL BILIRUBIN 0.3 mg/dL (0.0-1.0); UREA NITROGEN, BLOOD 55 mg/dL (7-18)
--- NOTE | 2019-12-04 07:07 | NUR ---
REPORT GIVEN TO AM NURSE AT BEDSIDE. PT IN STABLE CONDITION.
--- NOTE | 2019-12-04 07:15 | NUR ---
RECEIVED BEDSIDE REPORT FROM PM NURSE. PATIENT IS AWAKE. RESPIRATIONS EVEN AND UNLABORED, ON 2L O2 VIA NC. ON TELE MONITORING. IV ON THE RIGHT AC G20, SALINE LOCK. PATIENT USES BEDSIDE COMMODE. ON DROPLET PRECAUTION FOR INFLUENZA A&B. FALL PRECAUTION IN PLACE. BED IN LOW POSITION. CALL LIGHT IS WITHIN REACH. WILL CONTINUE TO MONITOR.
[2019-12-04 08:00] VITALS: BP 167/78
[2019-12-04] MEDS: DOCUSATE SODIUM 100 MG GELCAP PO SCH (08:31)
[2019-12-04] MEDS: hydrALAZINE 25 MG TAB PO SCH (08:31)
[2019-12-04] MEDS: FUROSEMIDE 40 MG/4 ML VIAL IVP SCH ×2 (08:31→13:10)
[2019-12-04] MEDS: POTASSIUM CHLORIDE 10 MEQ TABER PO SCH (08:31)
[2019-12-04] MEDS: cloNIDine 0.1 MG TAB PO SCH (08:31)
[2019-12-04] MEDS: SPIRONOLACTONE 25 MG TAB PO SCH (08:31)
[2019-12-04] MEDS: amLODIPine 5 MG TAB PO SCH (08:32)
--- NOTE | 2019-12-04 08:45 | NUR ---
DUE MEDS GIVEN. TOLERATED WELL
[2019-12-04] MEDS ORDERED: SODIUM POLYSTYRENE 15 GM/60 ML UDBTL PO SCH (09:00)
[2019-12-04] MEDS ORDERED: TAM75 PO (09:59)
[2019-12-04] MEDS ORDERED: FURO-570 PO (09:59)
[2019-12-04 10:08] VITALS: BP 154/75
--- NOTE | 2019-12-04 10:15 | NUR ---
PT IN BED NO C/O PAIN, NO SOB, ON ROOM AIR
--- NOTE | 2019-12-04 11:50 | NUR ---
BLOOD SUGAR 118. NO COVERAGE NEEDED
--- NOTE | 2019-12-04 12:15 | NUR ---
PT WITH DISCHARGE ORDER. DISCHARGE INSTRUCTIONS AND PRESCRIPTION GIVEN. PT VERBALIZED UNDERSTANDING. TELE MONITOR REMOVED. IV REMOVED WITH LUMEN INTACT. ID BAND REMOVED. PT WILL BE PICKED UP BY GRANDDAUGHTER VIA PRIVATE VEHICLE
--- NOTE | 2019-12-04 12:28 | NUR ---
DC PLANN[age] YRS OLD FEMALE PATIENT WAS ADMITTED FROM HOME WITH A DX OF CHF EXACERBATION R/O COVID. PATIENT HAS A HX OF CHF AND CKD STAGE III. STARTED IV LASIX , COVID TEST NEGATIVE , STABLE ON ROOM AIR. PT IS STABLE FOR DISCHARGE AND FOLLOW UP WITH RADIOLOGY TECH. CM TO FOLLOW. Addendum: 12/04/19 at 1426 by Michelle Ash CM SPOKE TO CHIKIS AT [facility] SHE PROVIDED AUTH FOR PATIENT AUTH # [id number] TO SEE RADIOLOGY TECH DR. DIAMOND [phone]. [id number] [address]. SPOKE TO BRADLEY AT DR. DIAMOND'S OFFICE SCHEDULED PATIENT AN APPT WITH RADIOLOGY TECH ON DECEMBER 26, 2019 AT 10:30 AM. NOTIFIED PATIENTS DAUGHTER NOLA MOORE [phone] OF APPOINTMENT.
--- NOTE | 2019-12-04 13:20 | NUR ---
ASSISTED PT TO FRONT LOBBY. PICKED UP BY GRANDDAUGHTER. STABLE UPON DISCHARGE
== END 2019-12-04 13:30 | disposition home or self-care (01) | DRG 291 ==
LOC: EEVIPCON 04:40 → MED 04:40 → UNDOADMOB 08:12 → MTU 08:12 → INTOOBSV 08:12 → MTU 08:29 → INTOOBSV 10:25 → OBSVTOIN 10:25 → MTU 12-02 10:25 → OBSVTOIN 12-02 10:25
PROVIDERS: ADMIT Hospitalist; ATTEND Hospitalist
DX: I13.0 Hypertensive heart and chronic kidney disease with heart failure and stage 1 through stage 4 chronic kidney disease, or unspecified chronic kidney disease (principal); J96.01 Acute respiratory failure with hypoxia; I50.33 Acute on chronic diastolic (congestive) heart failure; N18.4 Chronic kidney disease, stage 4 (severe); Z68.43 Body mass index [BMI] 50.0-59.9, adult; J10.1 Influenza due to other identified influenza virus with other respiratory manifestations; I43 Cardiomyopathy in diseases classified elsewhere; Z03.818 Encounter for observation for suspected exposure to other biological agents ruled out; E11.22 Type 2 diabetes mellitus with diabetic chronic kidney disease; M10.9 Gout, unspecified; E66.01 Morbid (severe) obesity due to excess calories; D63.8 Anemia in other chronic diseases classified elsewhere; Z83.3 Family history of diabetes mellitus; Z80.0 Family history of malignant neoplasm of digestive organs; Z82.3 Family history of stroke; Z91.19 Patient's noncompliance with other medical treatment and regimen
CPT/HCPCS: 36415; 71045; 80048; 80053; 81001; 82948; 83036; 83605; 83735; 83880; 84484; 85025; 85610; 85730; 87040; 87086; 87804; 93005; 99285; G0378; J1644; J1815; J1940; Q0092; U0003-CS